=== PATIENT | female | born 1935 | race Caucasian/White ===

== ENCOUNTER 2016-05-15 18:27 | Emergency (ER) | payer MEDICARE, MEDICAID ==
[2016-05-15 18:40] VITALS: BP 166/67
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
== END 2016-05-15 23:31 | disposition home or self-care (01) ==
LOC: ER 18:27
DX: S51.012A Laceration without foreign body of left elbow, initial encounter (principal); F03.90 Unspecified dementia, unspecified severity, without behavioral disturbance, psychotic disturbance, mood disturbance, and anxiety; W18.30XA Fall on same level, unspecified, initial encounter; Y92.129 Unspecified place in nursing home as the place of occurrence of the external cause
CPT/HCPCS: 99285